=== PATIENT | male | born 1970 | race Caucasian/White ===

== ENCOUNTER 2020-06-10 01:39 | Outpatient (CLI) | payer MEDICARE, SELFPAY ==
--- NOTE | 2020-06-10 | DI.MRI_ITS ---
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 METS TECHNIQUE: Multiplanar multisequence MRI of the brain was performed. CONTRAST MATERIAL: IV Contrast: 20 ML of Dotarem contrast administered. COMPARISON: No exams were available for comparison FINDINGS: The examination is limited due to patient motion artifact. VENTRICLES AND EXTRA AXIAL SPACES: Normal in size and morphology for the patient's age. HEMORRHAGE: None. CEREBRAL PARENCHYMA: No focus of restricted diffusion to suggest acute infarct. No space-occupying le marek identified. MIDLINE SHIFT: None. BRAINSTEM/CEREBELLUM: Normal. CALVARIUM: Normal. ENHANCEMENT: No suspicious enhancement identified. VISUALIZED PARANASAL SINUSES/MASTOIDS: Mucous retention cyst or polyp in the left maxillary sinus. S inuses are otherwise clear. [place]: Normal flow void. PITUITARY GLAND: Unremarkable. OTHER FINDINGS: IMPRESSION: 1. Intracranial mass or enhancing lesion to suggest metastatic disease. 2. No evidence of an acute infarct or intracranial hemorrhage. 3. Mucous retention cyst or polyp in the left maxillary sinus. DATA REPOSITORY:
[2020-06-10] MEDS: Gadoterate meglumine 20 ML VIAL 10 ML IVP (11:47)
== END 2020-06-10 01:59 ==
PROVIDERS: PCP Nurse Practitioner; Visit Provider Neurological Surgery
DX: C34.01 Malignant neoplasm of right main bronchus (principal); J34.1 Cyst and mucocele of nose and nasal sinus
CPT/HCPCS: 70553